=== PATIENT | female | born 1990 | race American Indian/Alaskan Native ===

== ENCOUNTER 2016-08-24 07:27 | Emergency (ER) | payer SELFPAY ==
[2016-08-24 07:48] VITALS: BP 152/87
[2016-08-24] MEDS ORDERED: XYLOCAINE 1% MPF 5 mL ONE (09:04)
[2016-08-24] MEDS ORDERED: XYLOCAINE 1% 20 mL INFILTRATI ONE (09:08)
--- NOTE | 2016-08-24 09:30 | Emergency Department Report ---
ED General Adult HPI - General Chief complaint: Skin/Abscess/Foreign Body Stated complaint: LT KNEE SWELLING/CELLULITIS ON STOMACH Time Seen by Provider: 08/24/16 08:34 Source: patient Mode of arrival: Ambulatory Limitations: No Limitations - History of Present Illness Initial comments: 25-year-old female presents to the ED complaining about a recurrent abscess/ cellulitis of the abdominal wall where her hernia is present. Patient also complains about left knee pain stating that it is aching. states that she does have scabbing over the wound and occasionally bleeds. denies seeing pus drainage. - Related Data Home Medications Medication Instructions Recorded Confirmed Last Taken Pnv with Ca,No.72/Iron/FA 1 tab PO DAILY 06/19/14 09/01/14 08/29/14 [ Plus Tablet] Labetalol HCl [Labetalol HCl] 200 mg PO BID 07/30/14 09/01/14 08/29/14 Previous Rx's Medication Instructions Recorded Last Taken Type Famotidine [Pepcid] 20 mg PO BID #60 tablet 06/19/14 08/30/14 Rx Ondansetron [Zofran Odt] 8 mg PO Q8HR PRN #30 tab.rapdis NS 06/19/14 07/30/14 12 :00 Rx 8mg Docusate Sodium [Colace CAP] 100 mg PO BID #60 capsule 08/31/14 Unknown Rx Ibuprofen [Motrin 800 MG tab] 800 mg PO Q6H PRN #120 tablet 08/31/14 Unknown Rx diphenhydrAMINE [Benadryl] 25 mg PO Q6HR #30 capsule 08/31/14 Unknown Rx oxyCODONE /ACETAMINOPHEN [Percocet 1 tab PO Q6HR PRN #30 tablet 08/31/14 Unknown Rx 5/325 mg] Albuterol Sulfate [Ventolin HFA] 2 puff IH Q4H PRN #1 hfa.aer.ad 09/06/14 Unknown Rx Benzonatate [Tessalon Perles] 100 mg PO Q8HR PRN 30 Days 09/06/14 Unknown Rx Budesonide [Pulmicort Flexhaler] 180 mcg IH Q12H 30 Days 09/06/14 Unknown Rx Butalb/Acetaminophen/Caffeine 1 - 2 each PO Q6H PRN #60 capsule 09/06/14 Unknown Rx [Fioricet 50-300-40 mg CAP] Diltiazem Cd [Cardizem CD] 240 mg PO QDAY #30 capsule 09/06/14 Unknown Rx Levofloxacin [Levaquin TAB] 750 mg PO Q24HR 3 Days 09/06/14 Unknown Rx metroNIDAZOLE [Flagyl TAB] 500 mg PO Q8HR 3 Days 09/06/14 Unknown Rx Allergies Allergy/AdvReac Type Severity Reaction Status Date / Time codeine Allergy Shortness Verified 02/01/14 10:43 of Breath Penicillins Allergy Anaphylaxis Verified 02/01/14 10:43 citic acid Allergy swell up Uncoded 06/20/14 10:04 ED Review of Systems ROS: Stated complaint: LT KNEE SWELLING/CELLULITIS ON STOMACH Other details as noted in HPI Constitutional: denies: chills, fever Eyes: denies: eye pain, eye discharge, vision change ENT: denies: ear pain, throat pain Respiratory: denies: cough, shortness of breath, wheezing Cardiovascular: denies: chest pain, palpitations Endocrine: no symptoms reported Gastrointestinal: denies: abdominal pain, nausea, diarrhea Genitourinary: denies: urgency, dysuria, discharge Musculoskeletal: arthralgia. denies: back pain, joint swelling Skin: other (wound). denies: rash, lesions Neurological: denies: headache, weakness, paresthesias Psychiatric: denies: anxiety, depression Hematological/Lymphatic: denies: easy bleeding, easy bruising ED Past Medical Hx - Past Medical History Previous Medical History?: Yes Hx Hypertension: Yes (PIH) Hx Congestive Heart Failure: No Hx Diabetes: No Hx Deep Vein Thrombosis: No Hx Renal Disease: No Hx Sickle Cell Disease: No Hx Seizures: Yes (x2, about a month ago) Hx Asthma: Yes (last attack about 3 months ago) Hx COPD: No Hx HIV: No Additional medical history: PIHMigraine headaches - Surgical History Past Surgical History?: No Hx Pacemaker: No Hx Internal Defibrillator: No - Social History Smoking Status: Current Every Day Smoker Substance Use Type: None - Medications Home Medications: Home Medications Medication Instructions Recorded Confirmed Last Taken Type Famotidine [Pepcid] 20 mg PO BID #60 tablet 06/19/14 09/01/14 08/30/14 Rx Ondansetron [Zofran Odt] 8 mg PO Q8HR PRN #30 tab.rapdis NS 03/10/15 05/23/15 04 /20/15 12:00 Rx 8mg Pnv with Ca,No.72/Iron/FA 1 tab PO DAILY 06/19/14 09/01/14 08/29/14 History [ Plus Tablet] Labetalol HCl [Labetalol HCl] 200 mg PO BID 07/30/14 09/01/14 08/29/14 History Docusate Sodium [Colace CAP] 100 mg PO BID #60 capsule 08/31/14 Unknown Rx Ibuprofen [Motrin 800 MG tab] 800 mg PO Q6H PRN #120 tablet 08/31/14 Unknown Rx diphenhydrAMINE [Benadryl] 25 mg PO Q6HR #30 capsule 08/31/14 Unknown Rx oxyCODONE /ACETAMINOPHEN [Percocet 1 tab PO Q6HR PRN #30 tablet 08/31/14 Unknown Rx 5/325 mg] Albuterol Sulfate [Ventolin HFA] 2 puff IH Q4H PRN #1 hfa.aer.ad 09/06/14 Unknown Rx Benzonatate [Tessalon Perles] 100 mg PO Q8HR PRN 30 Days 09/06/14 Unknown Rx Budesonide [Pulmicort Flexhaler] 180 mcg IH Q12H 30 Days 09/06/14 Unknown Rx Butalb/Acetaminophen/Caffeine 1 - 2 each PO Q6H PRN #60 capsule 09/06/14 Unknown Rx [Fioricet 50-300-40 mg CAP] Diltiazem Cd [Cardizem CD] 240 mg PO QDAY #30 capsule 09/06/14 Unknown Rx Levofloxacin [Levaquin TAB] 750 mg PO Q24HR 3 Days 09/06/14 Unknown Rx metroNIDAZOLE [Flagyl TAB] 500 mg PO Q8HR 3 Days 09/06/14 Unknown Rx ED Physical Exam - General Limitations: No Limitations General appearance: alert, in no apparent distress - Head Head exam: Present: atraumatic, normocephalic - Eye Eye exam: Present: normal appearance - ENT ENT exam: Present: mucous membranes moist - Neck Neck exam: Present: normal inspection - Respiratory Respiratory exam: Present: normal lung sounds bilaterally. Absent: respiratory distress - Cardiovascular Cardiovascular Exam: Present: regular rate, normal rhythm. Absent: systolic murmur, diastolic murmur, rubs, gallop - GI/Abdominal GI/Abdominal exam: Present: soft, normal bowel sounds - Extremities Exam Extremities exam: Present: normal inspection - Expanded Lower Extremity Exam Left Knee exam: Present: full ROM, tenderness. Absent: swelling, abrasion, laceration, ecchymosis - Back Exam Back exam: Present: normal inspection - Neurological Exam Neurological exam: Present: alert, oriented X3 - Psychiatric Psychiatric exam: Present: normal affect, normal mood - Skin Skin exam: Present: warm, dry, intact, normal color, other (right abdominal wall where hernia is present appears to have slight discoloration and skin that is red with scabbing without drainage. There is tenderness to palpation but no induration, warmth). Absent: rash ED Course Vital Signs 08/24/16 07:45 Temperature 98.6 F Pulse Rate 103 H Respiratory 16 Rate Blood Pressure 152/87 O2 Sat by Pulse 97 Oximetry - Procedure Description Procedures done: Slight swelling to the right abdominal wall with scabbing. Betadine used to prep the area. One percent lidocaine used to anesthetize. One single straight 1 cm incision made over the wound. Slight bloody discharge but no purulent discharge. ED Medical Decision Making - Lab Data Vital Signs 08/24/16 07:45 Temperature 98.6 F Pulse Rate 103 H Respiratory 16 Rate Blood Pressure 152/87 O2 Sat by Pulse 97 Oximetry - Medical Decision Making patient resting comfortably. NAD at this time. VSS for DC. Critical care attestation.: If time is entered above; I have spent that time in minutes in the direct care of this critically ill patient, excluding procedure time. ED Disposition Clinical Impression: Cellulitis, abdominal wall, Left knee pain Disposition: DISCHARGED TO HOME OR SELFCARE Is pt being admited?: No Does the pt Need Aspirin: No Condition: Good Additional Instructions: Take medication as prescribed. Keep area clean and dry with soap and water. Continue following up with the senior mortgage underwriter. Referrals: PRIMARY CARE, [Primary Care Provider] - 3-5 Days Forms: Work/School Release Form(ED) Time of Disposition: 09:32
== END 2016-08-24 09:58 | disposition home or self-care (01) ==
LOC: ED 07:27
DX: L03.311 Cellulitis of abdominal wall (principal); M25.562 Pain in left knee; Z88.0 Allergy status to penicillin; Z88.5 Allergy status to narcotic agent; Z88.8 Allergy status to other drugs, medicaments and biological substances; I10 Essential (primary) hypertension; J45.909 Unspecified asthma, uncomplicated; G43.909 Migraine, unspecified, not intractable, without status migrainosus; F17.200 Nicotine dependence, unspecified, uncomplicated
CPT/HCPCS: 99282

== ENCOUNTER 2016-11-16 08:01 | Emergency (ER) | payer SELFPAY ==
--- NOTE | 2016-11-16 09:19 | Emergency Department Report ---
- General Chief complaint: Skin/Abscess/Foreign Body Stated complaint: WOUND ON ABDOMEN INFECTED Time Seen by Provider: 11/16/16 08:59 Source: patient Mode of arrival: Ambulatory Limitations: No Limitations - History of Present Illness Initial comments: This is a 26-year-old female nontoxic, well nourished in appearance, no acute signs of distress that presented to the ED complaining of a unhealed open wound to the novel area since May. Patient stated she wanted different emergency rooms that was prescribed different type of antibiotics which made it heal but the patient states the wound started to reopen with pus and drainage. Patient also has secondary complaint of vomiting and decreased bowel movement x1 week. Patient denies any fever, chills, headache, stiff neck, abdominal pain , chest pain or shortness of breath. Patient also stated she has a unrepaired hernia but denies any pain to the area. Patient states she does not have insurance yet and is in the process of receiving. Patient states allergies to penicillin and codeine with past medical history of asthma, hypertension, migraine headaches, and seizures. MD complaint: other (open wound) -: Gradual Tetanus Up to Date: yes Severity: mild Severity scale (0 -10): 4 Quality: aching Consistency: constant Improves with: none Worsens with: none Associated symptoms: denies other symptoms Treatments Prior to Arrival: none - Related Data Home Medications Medication Instructions Recorded Confirmed Last Taken Pnv with Ca,No.72/Iron/FA 1 tab PO DAILY 06/19/14 09/01/14 08/29/14 [ Plus Tablet] Labetalol HCl [Labetalol HCl] 200 mg PO BID 07/30/14 09/01/14 08/29/14 Previous Rx's Medication Instructions Recorded Last Taken Type Famotidine [Pepcid] 20 mg PO BID #60 tablet 06/19/14 08/30/14 Rx Ondansetron [Zofran Odt] 8 mg PO Q8HR PRN #30 tab.rapdis NS 06/19/14 07/30/14 12 :00 Rx 8mg Docusate Sodium [Colace CAP] 100 mg PO BID #60 capsule 08/31/14 Unknown Rx Ibuprofen [Motrin 800 MG tab] 800 mg PO Q6H PRN #120 tablet 08/31/14 Unknown Rx diphenhydrAMINE [Benadryl] 25 mg PO Q6HR #30 capsule 08/31/14 Unknown Rx oxyCODONE /ACETAMINOPHEN [Percocet 1 tab PO Q6HR PRN #30 tablet 08/31/14 Unknown Rx 5/325 mg] Albuterol Sulfate [Ventolin HFA] 2 puff IH Q4H PRN #1 hfa.aer.ad 09/06/14 Unknown Rx Benzonatate [Tessalon Perles] 100 mg PO Q8HR PRN 30 Days 09/06/14 Unknown Rx Budesonide [Pulmicort Flexhaler] 180 mcg IH Q12H 30 Days 09/06/14 Unknown Rx Butalb/Acetaminophen/Caffeine 1 - 2 each PO Q6H PRN #60 capsule 09/06/14 Unknown Rx [Fioricet 50-300-40 mg CAP] Diltiazem Cd [Cardizem CD] 240 mg PO QDAY #30 capsule 09/06/14 Unknown Rx Levofloxacin [Levaquin TAB] 750 mg PO Q24HR 3 Days 09/06/14 Unknown Rx metroNIDAZOLE [Flagyl TAB] 500 mg PO Q8HR 3 Days 09/06/14 Unknown Rx Acetaminophen/Codeine [Tylenol 1 tab PO Q6H PRN #10 tab 08/24/16 Unknown Rx /Codeine # 3 tab] Diclofenac Sodium 75 mg PO BID #20 tablet. 08/24/16 Unknown Rx Doxycycline Monohydrate 100 mg PO BID #20 capsule 08/24/16 Unknown Rx [Doxycycline Monohydrate CAP] Sulfamethoxazole/Trimethoprim 1 each PO BID #20 tablet 11/16/16 Unknown Rx [Bactrim DS TAB] amLODIPine [Norvasc] 2.5 mg PO DAILY #30 tab 11/16/16 Unknown Rx Allergies Allergy/AdvReac Type Severity Reaction Status Date / Time codeine Allergy Shortness Verified 02/01/14 10:43 of Breath Penicillins Allergy Anaphylaxis Verified 02/01/14 10:43 citic acid Allergy swell up Uncoded 06/20/14 10:04 Abscess Boil HPI - HPI Chief Complaint: Skin/Abscess/Foreign Body Stated Complaint: WOUND ON ABDOMEN INFECTED Time Seen by Provider: 11/16/16 08:59 Home Medications: Home Medications Medication Instructions Recorded Confirmed Last Taken Pnv with Ca,No.72/Iron/FA 1 tab PO DAILY 06/19/14 09/01/14 08/29/14 [ Plus Tablet] Labetalol HCl [Labetalol HCl] 200 mg PO BID 07/30/14 09/01/14 08/29/14 Previous Rx's Medication Instructions Recorded Last Taken Type Famotidine [Pepcid] 20 mg PO BID #60 tablet 06/19/14 08/30/14 Rx Ondansetron [Zofran Odt] 8 mg PO Q8HR PRN #30 tab.rapdis NS 06/19/14 07/30/14 12 :00 Rx 8mg Docusate Sodium [Colace CAP] 100 mg PO BID #60 capsule 08/31/14 Unknown Rx Ibuprofen [Motrin 800 MG tab] 800 mg PO Q6H PRN #120 tablet 08/31/14 Unknown Rx diphenhydrAMINE [Benadryl] 25 mg PO Q6HR #30 capsule 08/31/14 Unknown Rx oxyCODONE /ACETAMINOPHEN [Percocet 1 tab PO Q6HR PRN #30 tablet 08/31/14 Unknown Rx 5/325 mg] Albuterol Sulfate [Ventolin HFA] 2 puff IH Q4H PRN #1 hfa.aer.ad 09/06/14 Unknown Rx Benzonatate [Tessalon Perles] 100 mg PO Q8HR PRN 30 Days 09/06/14 Unknown Rx Budesonide [Pulmicort Flexhaler] 180 mcg IH Q12H 30 Days 09/06/14 Unknown Rx Butalb/Acetaminophen/Caffeine 1 - 2 each PO Q6H PRN #60 capsule 09/06/14 Unknown Rx [Fioricet 50-300-40 mg CAP] Diltiazem Cd [Cardizem CD] 240 mg PO QDAY #30 capsule 09/06/14 Unknown Rx Levofloxacin [Levaquin TAB] 750 mg PO Q24HR 3 Days 09/06/14 Unknown Rx metroNIDAZOLE [Flagyl TAB] 500 mg PO Q8HR 3 Days 09/06/14 Unknown Rx Acetaminophen/Codeine [Tylenol 1 tab PO Q6H PRN #10 tab 08/24/16 Unknown Rx /Codeine # 3 tab] Diclofenac Sodium 75 mg PO BID #20 tablet. 08/24/16 Unknown Rx Doxycycline Monohydrate 100 mg PO BID #20 capsule 08/24/16 Unknown Rx [Doxycycline Monohydrate CAP] Sulfamethoxazole/Trimethoprim 1 each PO BID #20 tablet 11/16/16 Unknown Rx [Bactrim DS TAB] amLODIPine [Norvasc] 2.5 mg PO DAILY #30 tab 11/16/16 Unknown Rx Allergies/Adverse Reactions: Allergies Allergy/AdvReac Type Severity Reaction Status Date / Time codeine Allergy Shortness Verified 02/01/14 10:43 of Breath Penicillins Allergy Anaphylaxis Verified 02/01/14 10:43 citic acid Allergy swell up Uncoded 06/20/14 10:04 ED Review of Systems ROS: Stated complaint: WOUND ON ABDOMEN INFECTED Other details as noted in HPI Constitutional: denies: chills, fever Eyes: denies: eye pain, eye discharge, vision change ENT: denies: ear pain, throat pain Respiratory: denies: cough, shortness of breath, wheezing Cardiovascular: denies: chest pain, palpitations Endocrine: no symptoms reported Gastrointestinal: denies: abdominal pain, nausea, diarrhea Genitourinary: denies: urgency, dysuria, discharge Musculoskeletal: denies: back pain, joint swelling, arthralgia Skin: denies: rash, lesions Neurological: denies: headache, weakness, paresthesias Psychiatric: denies: anxiety, depression Hematological/Lymphatic: denies: easy bleeding, easy bruising ED Past Medical Hx - Past Medical History Previous Medical History?: Yes Hx Hypertension: Yes (PIH) Hx Congestive Heart Failure: No Hx Diabetes: No Hx Deep Vein Thrombosis: No Hx Renal Disease: No Hx Sickle Cell Disease: No Hx Seizures: Yes (x2, about a month ago) Hx Asthma: Yes (last attack about 3 months ago) Hx COPD: No Hx HIV: No Additional medical history: PIHMigraine headaches - Surgical History Past Surgical History?: No Hx Pacemaker: No Hx Internal Defibrillator: No - Social History Smoking Status: Current Every Day Smoker Substance Use Type: None - Medications Home Medications: Home Medications Medication Instructions Recorded Confirmed Last Taken Type Famotidine [Pepcid] 20 mg PO BID #60 tablet 06/19/14 09/01/14 08/30/14 Rx Ondansetron [Zofran Odt] 8 mg PO Q8HR PRN #30 tab.rapdis NS 06/19/14 09/01/14 12:00 Rx 8mg Pnv with Ca,No.72/Iron/FA 1 tab PO DAILY 06/19/14 09/01/14 08/29/14 History [ Plus Tablet] Labetalol HCl [Labetalol HCl] 200 mg PO BID 07/30/14 09/01/14 08/29/14 History Docusate Sodium [Colace CAP] 100 mg PO BID #60 capsule 08/31/14 Unknown Rx Ibuprofen [Motrin 800 MG tab] 800 mg PO Q6H PRN #120 tablet 08/31/14 Unknown Rx diphenhydrAMINE [Benadryl] 25 mg PO Q6HR #30 capsule 08/31/14 Unknown Rx oxyCODONE /ACETAMINOPHEN [Percocet 1 tab PO Q6HR PRN #30 tablet 08/31/14 Unknown Rx 5/325 mg] Albuterol Sulfate [Ventolin HFA] 2 puff IH Q4H PRN #1 hfa.aer.ad 09/06/14 Unknown Rx Benzonatate [Tessalon Perles] 100 mg PO Q8HR PRN 30 Days 09/06/14 Unknown Rx Budesonide [Pulmicort Flexhaler] 180 mcg IH Q12H 30 Days 09/06/14 Unknown Rx Butalb/Acetaminophen/Caffeine 1 - 2 each PO Q6H PRN #60 capsule 09/06/14 Unknown Rx [Fioricet 50-300-40 mg CAP] Diltiazem Cd [Cardizem CD] 240 mg PO QDAY #30 capsule 09/06/14 Unknown Rx Levofloxacin [Levaquin TAB] 750 mg PO Q24HR 3 Days 09/06/14 Unknown Rx metroNIDAZOLE [Flagyl TAB] 500 mg PO Q8HR 3 Days 09/06/14 Unknown Rx Acetaminophen/Codeine [Tylenol 1 tab PO Q6H PRN #10 tab 08/24/16 Unknown Rx /Codeine # 3 tab] Diclofenac Sodium 75 mg PO BID #20 tablet.dr 08/24/16 Unknown Rx Doxycycline Monohydrate 100 mg PO BID #20 capsule 08/24/16 Unknown Rx [Doxycycline Monohydrate CAP] Sulfamethoxazole/Trimethoprim 1 each PO BID #20 tablet 11/16/16 Unknown Rx [Bactrim DS TAB] amLODIPine [Norvasc] 2.5 mg PO DAILY #30 tab 11/16/16 Unknown Rx ED Physical Exam - General Limitations: No Limitations General appearance: alert, in no apparent distress - Head Head exam: Present: atraumatic, normocephalic, normal inspection - Eye Eye exam: Present: normal appearance, PERRL, EOMI. Absent: scleral icterus, conjunctival injection, nystagmus, periorbital swelling, periorbital tenderness Pupils: Present: normal accommodation - ENT ENT exam: Present: normal exam, normal orophraynx, mucous membranes moist, TM's normal bilaterally, normal external ear exam - Neck Neck exam: Present: normal inspection, full ROM. Absent: tenderness, meningismus, lymphadenopathy, thyromegaly - Respiratory Respiratory exam: Present: normal lung sounds bilaterally. Absent: respiratory distress, wheezes, rales, rhonchi, stridor, chest wall tenderness, accessory muscle use, decreased breath sounds, prolonged expiratory - Cardiovascular Cardiovascular Exam: Present: regular rate, normal rhythm, normal heart sounds. Absent: systolic murmur, diastolic murmur, rubs, gallop - GI/Abdominal GI/Abdominal exam: Present: soft, normal bowel sounds, hernia (reducible to the right lower quadrant region), other (2 cm x 2 cm circular open wound with pus and drainage noted to the right lower quadrant.). Absent: distended, tenderness , guarding, rebound, rigid, diminished bowel sounds, hyperactive bowel sounds, hypoactive bowel sounds, organomegaly, mass, bruit, pulsatile mass - Expanded GI/Abdominal Exam Expanded GI/Abdominal exam: Absent: psoas sign, heel tap sign, Marinelli's sign, Rovsing's sign, tenderness at [place]bur[place]'s Point, ascites - Rectal Rectal exam: Present: deferred - Extremities Exam Extremities exam: Present: normal inspection, full ROM, normal capillary refill. Absent: tenderness, pedal edema, joint swelling, calf tenderness - Back Exam Back exam: Present: normal inspection, full ROM. Absent: tenderness, CVA tenderness (R), CVA tenderness (L), muscle spasm, paraspinal tenderness, vertebral tenderness, rash noted - Neurological Exam Neurological exam: Present: alert, oriented X3, CN II-XII intact, normal gait, reflexes normal - Psychiatric Psychiatric exam: Present: normal affect, normal mood - Skin Skin exam: Present: warm, dry, intact, normal color. Absent: rash ED Course Vital Signs 11/16/16 11/16/16 11/16/16 08:03 08:29 14:00 Temperature 98.4 F 98.7 F Pulse Rate 103 H 101 H 97 H Respiratory 16 20 18 Rate Blood Pressure 154/106 Blood Pressure 153/98 144/81 [Right] O2 Sat by Pulse 100 100 99 Oximetry - Reevaluation(s) Reevaluation #1: 11/16/16 09:22 Patient is able speak full sentences with no signs of distress. Reevaluation #2: 11/16/16 13:49 Patient is resting comfortably with no signs of distress noted. - Consultations Consultation #1: 11/16/16 09:22 Dr. Newton was consulted and examined patient. Agrees to the plan of care in the ED. Consultation #2: 11/16/16 13:49 Dr. Newton consulted about lab results and ct scan. agrees for d/c with proper follow-up. ED Medical Decision Making - Lab Data Result diagrams: 11/16/16 09:24 11/16/16 09:24 - Medical Decision Making Ed course: This is a 26-year-old female that presents to the ED with open wound 1- patient was examined by myself and Dr. Newton. CT scan of abd w/ contrast/ CBC , BMP, Lip. Lactic acid, Amylase has been obtained. CT indicates a large ventral hernia and superior hernia. Hernias are reducible. Patient was instructed to follow up with a primary care doctor/general surgery in 3-5 days for her hernias. Patient is also short-lived to follow-up with a triage specialist in 24 hours. Patient be treated with Bactrim 10 days. Patient was also instructed to take amlodipine as prescribed. I notified patient to take blood pressure vitals in the morning, afternoon and evening time and followed up with her primary care doctor. Critical care attestation.: If time is entered above; I have spent that time in minutes in the direct care of this critically ill patient, excluding procedure time. ED Disposition Clinical Impression: Open wound High blood pressure Qualifiers: Hypertension type: unspecified Qualified Code(s): I10 - Essential (primary) hypertension Ventral hernia Qualifiers: Obstruction and gangrene presence: without obstruction or gangrene Qualified Code(s): K43.9 - Ventral hernia without obstruction or gangrene Disposition: DC-01 TO HOME OR SELFCARE Is pt being admited?: No Does the pt Need Aspirin: No Condition: Stable Instructions: Sulfamethoxazole/Trimethoprim (By mouth), Amlodipine (By mouth), Wound Infection (ED), Acute Wound Care (ED), Wound Healing and Your Diet (ED), DASH Eating Plan (ED), Low Sodium Diet (ED), Hypertension (ED) Additional Instructions: Follow-up with a primary care doctor/general surgery in 24 hours for your ventral hernias. You also have high blood pressure in the emergency room so please take amlodipine as prescribed. Check your blood pressure in the morning, afternoon and evening times and follow up with your primary care doctor for blood pressure 3-5 days. Take full course of antibiotics as prescribed. Keep wound clean with 4 x 4's wet and tape. Follow-up with a triage specialist in 24 hours as directed [facility] has a excellent male infertility specialist. Please make an appointment as I referred you too. Prescriptions: amLODIPine [Norvasc] 2.5 mg PO DAILY #30 tab Sulfamethoxazole/Trimethoprim [Bactrim DS TAB] 1 each PO BID #20 tablet Referrals: PRIMARY MD ADAM [Primary Care Provider] - 3-5 Days CONSUELO POLANCO MD [Staff Physician] - 3-5 Days [facility] [Outside] - 3-5 Days [facility] [Outside] - 3-5 Days [facility] [Outside] - 3-5 Days Forms: Work/School Release Form(ED)
[2016-11-16 09:36] LABS: Basophils % (Auto) 0.3 % (0.0-1.8); Hematocrit 40.4 % (30.3-42.9); Mean Corpuscular HGB Conc 32 % (30-34); Mean Corpuscular Hemoglobin 26 pg (28-32); Mean Corpuscular Volume 82 fl (79-97); Platelet Count 243 K/mm3 (140-440); Red Blood Count 4.92 M/mm3 (3.65-5.03); Red Cell Distribution Width 16.6 % (13.2-15.2); White Blood Count 5.1 K/mm3 (4.5-11.0)
[2016-11-16 09:46] LABS: Amylase 47 units/L (27-131); Lipase 24 units/L (13-60)
[2016-11-16 09:48] LABS: Alanine Aminotransferase 48 units/L (7-56); Albumin/Globulin Ratio 1.1 %; Alkaline Phosphatase 63 units/L (35-129); Anion Gap 17 mmol/L; Blood Urea Nitrogen 9 mg/dL (7-17); Calcium 8.7 mg/dL (8.4-10.2); Carbon Dioxide 24 mmol/L (22-30); Chloride 102.6 mmol/L (98-107); Glucose 113 mg/dL (65-100); Potassium 3.7 mmol/L (3.6-5.0); Sodium 140 mmol/L (137-145); Total Protein 7.7 g/dL (6.3-8.2)
[2016-11-16 09:54] LABS: Bilirubin,Direct < 0.2 mg/dL (0-0.2)
[2016-11-16] MEDS ORDERED: TORADOL IV ONE (10:14)
[2016-11-16] MEDS ORDERED: ZOFRAN ODT ONE (10:24)
[2016-11-16] MEDS ORDERED: ZOFRAN ODT PO ONE (10:26)
--- NOTE | 2016-11-16 13:28 | Cat Scan Report ---
CT scan of abdomen and pelvis with IV and oral contrast: History: Abdominal pain. Findings: No acute lung changes. No pleural or pericardial effusion. Normal liver spleen pancreas and gallbladder. Normal adrenals and kidney parenchyma. Decompressed urinary bladder. Large ventral hernia containing loops of small bowel and measuring approximate 16 cm in maximum diameter. Superior to the hernia there is a second hernia measuring approximately 8 cm in diameter containing loops of large bowel. No bowel obstruction. No incarceration. 4.4 cm suspected right pelvic mass probably ovarian cyst. No evidence of appendicitis or diverticulitis. Impression: Ventral hernias as detailed above. Suspected right ovarian cyst.
[2016-11-16 14:01] VITALS: BP 144/81
== END 2016-11-16 14:13 | disposition home or self-care (01) ==
LOC: ED 08:01
DX: S31.103A Unspecified open wound of abdominal wall, right lower quadrant without penetration into peritoneal cavity, initial encounter (principal); K43.9 Ventral hernia without obstruction or gangrene; I10 Essential (primary) hypertension; J45.909 Unspecified asthma, uncomplicated; F17.200 Nicotine dependence, unspecified, uncomplicated; X58.XXXA Exposure to other specified factors, initial encounter; Y93.9 Activity, unspecified; Y92.9 Unspecified place or not applicable; Y99.9 Unspecified external cause status
CPT/HCPCS: 36415; 74177; 80048; 80074; 82140; 82150; 82550; 83690; 84702; 85025; 96374; 99284; J1885; Q9967; Q0162

== ENCOUNTER 2018-11-30 10:26 | Emergency (ER) | payer SELFPAY ==
[2018-11-30 10:39] VITALS: BP 135/88
[2018-11-30 11:02] LABS: Bacteria,Urine 1+ /HPF (Negative); Mucus,Urine FEW /HPF
--- NOTE | 2018-11-30 11:13 | Emergency Department Report ---
ED Abdominal Pain HPI - General Chief Complaint: Abdominal Pain Stated Complaint: HERNIA PAIN Time Seen by Provider: 11/30/18 10:55 Source: patient Mode of arrival: Ambulatory Limitations: No Limitations - History of Present Illness Initial Comments: Shawanda is a healthy 28-year-old female with history of severe obesity and abdominal hernia who presents with pain at the site of both hernia. She has had pain in the epigastric region and left lower quadrant. She explained that over the last several weeks that the hernia has been protruding. She has intermittent constipation and diarrhea. She has been to several emergency departments in the [facility]. She has been referred to a hernia [facility] in [place]. She also was recommended to have surgery. Pain is positional. She denies fever. Denies vomiting. She has battled with obesity since her teenage years. At the age of 20 she was 290 pounds. While in college, she lost 150 pounds. However she has not been able to lose the weight after her recent 4 years ago. MD Complaint: abdominal pain -: Gradual, year(s) (several years) Location: RLQ, epigastric Severity: moderate Quality: cramping, sharp Consistency: constant Improves With: other (standing and laying) Worsens With: movement, other (palpation) Context: other (hernia and obesity) Associated Symptoms: denies other symptoms - Related Data Home Medications Medication Instructions Recorded Confirmed Last Taken Pnv with Ca,No.72/Iron/FA 1 tab PO DAILY 06/19/14 09/01/14 08/29/14 [ Plus Tablet] Labetalol HCl 200 mg PO BID 07/30/14 09/01/14 08/29/14 Previous Rx's Medication Instructions Recorded Last Taken Type Famotidine [Pepcid] 20 mg PO BID #60 tablet 06/19/14 08/30/14 Rx Ondansetron [Zofran Odt] 8 mg PO Q8HR PRN #30 tab.rapdis NS 06/19/14 07/30/14 12:00 Rx 8mg Docusate Sodium [Colace CAP] 100 mg PO BID #60 capsule 08/31/14 Unknown Rx Ibuprofen [Motrin 800 MG tab] 800 mg PO Q6H PRN #120 tablet 08/31/14 Unknown Rx diphenhydrAMINE [Benadryl] 25 mg PO Q6HR #30 capsule 08/31/14 Unknown Rx oxyCODONE /ACETAMINOPHEN [Percocet 1 tab PO Q6HR PRN #30 tablet 08/31/14 Unknown Rx 5/325 mg] Albuterol Sulfate [Ventolin HFA] 2 puff IH Q4H PRN #1 hfa.aer.ad 09/06/14 Unknown Rx Benzonatate [Tessalon Perles] 100 mg PO Q8HR PRN 30 Days capsule 09/06/14 Unknown Rx Budesonide [Pulmicort Flexhaler] 180 mcg IH Q12H 30 Days aer.pow.ba 09/06/14 Unknown Rx Butalb/Acetaminophen/Caffeine 1 - 2 each PO Q6H PRN #60 capsule 09/06/14 Unknown Rx [Fioricet 50-300-40 mg CAP] dilTIAZem CD [Cardizem CD] 240 mg PO QDAY #30 capsule 09/06/14 Unknown Rx levoFLOXacin [Levaquin TAB] 750 mg PO Q24HR 3 Days tablet 09/06/14 Unknown Rx metroNIDAZOLE [Flagyl TAB] 500 mg PO Q8HR 3 Days tablet 09/06/14 Unknown Rx Acetaminophen/Codeine [Tylenol 1 tab PO Q6H PRN #10 tab 08/24/16 Unknown Rx /Codeine # 3 tab] Diclofenac Sodium 75 mg PO BID #20 tablet.dr 08/24/16 Unknown Rx Doxycycline Monohydrate 100 mg PO BID #20 capsule 08/24/16 Unknown Rx [Doxycycline Monohydrate CAP] Sulfamethoxazole/Trimethoprim 1 each PO BID #20 tablet 11/16/16 Unknown Rx [Bactrim DS TAB] amLODIPine [Norvasc] 2.5 mg PO DAILY #30 tab 11/16/16 Unknown Rx Docusate Sodium [Colace] 100 mg PO BID 14 Days #28 capsule 11/30/18 Unknown Rx Allergies Allergy/AdvReac Type Severity Reaction Status Date / Time codeine Allergy Shortness Verified 11/30/18 10:28 of Breath Penicillins Allergy Anaphylaxis Verified 11/30/18 10:28 citic acid Allergy swell up Uncoded 06/20/14 10:04 ED Review of Systems ROS: Stated complaint: HERNIA PAIN Other details as noted in HPI Comment: All other systems reviewed and negative Constitutional: denies: fever, malaise Gastrointestinal: abdominal pain ED Past Medical Hx - Past Medical History Previous Medical History?: Yes Hx Hypertension: Yes (PIH) Hx Congestive Heart Failure: No Hx Diabetes: No Hx Deep Vein Thrombosis: No Hx Renal Disease: No Hx Sickle Cell Disease: No Hx Seizures: No (NOT SINCE ) Hx Asthma: No Hx COPD: No Hx HIV: No Additional medical history: PIHMigraine headaches - Surgical History Hx Pacemaker: No Hx Internal Defibrillator: No Additional Surgical History: C SECTIONS - Social History Smoking Status: Never Smoker - Medications Home Medications: Home Medications Medication Instructions Recorded Confirmed Last Taken Type Famotidine [Pepcid] 20 mg PO BID #60 tablet 06/19/14 09/01/14 08/30/14 Rx Ondansetron [Zofran Odt] 8 mg PO Q8HR PRN #30 tab.rapdis NS 06/19/14 09/01/14 07/30/14 12:00 Rx 8mg Pnv with Ca,No.72/Iron/FA 1 tab PO DAILY 06/19/14 09/01/14 08/29/14 History [ Plus Tablet] Labetalol HCl 200 mg PO BID 07/30/14 09/01/14 08/29/14 History Docusate Sodium [Colace CAP] 100 mg PO BID #60 capsule 08/31/14 Unknown Rx Ibuprofen [Motrin 800 MG tab] 800 mg PO Q6H PRN #120 tablet 08/31/14 Unknown Rx diphenhydrAMINE [Benadryl] 25 mg PO Q6HR #30 capsule 08/31/14 Unknown Rx oxyCODONE /ACETAMINOPHEN [Percocet 1 tab PO Q6HR PRN #30 tablet 08/31/14 Unknown Rx 5/325 mg] Albuterol Sulfate [Ventolin HFA] 2 puff IH Q4H PRN #1 hfa.aer.ad 09/06/14 Unk nown Rx Benzonatate [Tessalon Perles] 100 mg PO Q8HR PRN 30 Days capsule 09/06/14 Unknown Rx Budesonide [Pulmicort Flexhaler] 180 mcg IH Q12H 30 Days aer.pow.ba 09/06/14 Unknown Rx Butalb/Acetaminophen/Caffeine 1 - 2 each PO Q6H PRN #60 capsule 09/06/14 Unknown Rx [Fioricet 50-300-40 mg CAP] dilTIAZem CD [Cardizem CD] 240 mg PO QDAY #30 capsule 09/06/14 Unknown Rx levoFLOXacin [Levaquin TAB] 750 mg PO Q24HR 3 Days tablet 09/06/14 Unknown Rx metroNIDAZOLE [Flagyl TAB] 500 mg PO Q8HR 3 Days tablet 09/06/14 Unknown Rx Acetaminophen/Codeine [Tylenol 1 tab PO Q6H PRN #10 tab 08/24/16 Unknown Rx /Codeine # 3 tab] Diclofenac Sodium 75 mg PO BID #20 tablet.dr 08/24/16 Unknown Rx Doxycycline Monohydrate 100 mg PO BID #20 capsule 08/24/16 Unknown Rx [Doxycycline Monohydrate CAP] Sulfamethoxazole/Trimethoprim 1 each PO BID #20 tablet 11/16/16 Unknown Rx [Bactrim DS TAB] amLODIPine [Norvasc] 2.5 mg PO DAILY #30 tab 11/16/16 Unknown Rx Docusate Sodium [Colace] 100 mg PO BID 14 Days #28 capsule 11/30/18 Unknown Rx ED Physical Exam - General Limitations: No Limitations General appearance: alert, in no apparent distress - Head Head exam: Present: atraumatic, normocephalic - Eye Eye exam: Present: normal appearance - ENT ENT exam: Present: mucous membranes moist - Neck Neck exam: Present: normal inspection, full ROM - Respiratory Respiratory exam: Present: normal lung sounds bilaterally. Absent: respiratory distress, wheezes, rales, rhonchi - Cardiovascular Cardiovascular Exam: Present: regular rate, normal rhythm, normal heart sounds. Absent: systolic murmur, diastolic murmur, rubs, gallop - GI/Abdominal GI/Abdominal exam: Present: soft, other (obese habitus large hernia RLQ unable to palpate hernia in upper quadrant). Absent: distended, tenderness, guarding, rebound - Extremities Exam Extremities exam: Present: normal inspection - Back Exam Back exam: Present: normal inspection - Neurological Exam Neurological exam: Present: alert, oriented X3 - Psychiatric Psychiatric exam: Present: normal affect, normal mood - Skin Skin exam: Present: warm, dry, intact, normal color. Absent: rash ED Course Vital Signs 11/30/18 10:37 Temperature 98.3 F Pulse Rate 102 H Respiratory 18 Rate Blood Pressure 135/88 O2 Sat by Pulse 100 Oximetry ED Medical Decision Making - Medical Decision Making Shawanda presents with abdominal wall hernias mild discomfort. No indication of incarceration or peritonitis on exam. She has been to several hospitals in the [place] area including [facility] and [facility]. Even referred to a hernia institute in [place] . She desires definitive care for abdominal hernias. I strongly suggested that she seek out a hydraulic blocker. Also referred her to our weight loss program here at [facility]. She appears receptive to bariatric surgery. In the interim, I have prescribed Colace. I recommended clear liquid diet for the next 3 days. Critical care attestation.: If time is entered above; I have spent that time in minutes in the direct care of this critically ill patient, excluding procedure time. ED Disposition Clinical Impression: Abdominal hernia, Severe obesity, Abdominal pain Disposition: - TO HOME OR SELFCARE Is pt being admited?: No Does the pt Need Aspirin: No Condition: Stable Instructions: Obesity (ED), Weight Management (ED) Additional Instructions: Clear liquid diet for the next 3 days. Please contact our healthy [facility] Center. The phone number is . Prescriptions: Docusate Sodium [Colace] 100 mg PO BID 14 Days #28 capsule Referrals: BRENDAN FLORES MD [Staff Physician] - 3-5 Days
[2018-11-30] MEDS ORDERED: TORADOL IM ONE (11:19)
[2018-11-30 11:20] LABS: Bilirubin,Urine NEG (Negative); Blood,Urine NEG (Negative); Color,Urine Yellow (Yellow); Protein,Urine <15 mg/dL mg/dL (Negative); Urobilinogen,Urine < 2.0 mg/dL (<2.0)
== END 2018-11-30 11:36 | disposition home or self-care (01) ==
LOC: ED 10:26
DX: K46.9 Unspecified abdominal hernia without obstruction or gangrene (principal); E66.01 Morbid (severe) obesity due to excess calories; I10 Essential (primary) hypertension; Z88.5 Allergy status to narcotic agent; Z88.0 Allergy status to penicillin; Z91.018 Allergy to other foods
CPT/HCPCS: 81001; 96372; 99283; J1885

== ENCOUNTER 2021-08-15 21:16 | Emergency (ER) | payer OTHER ==
[2021-08-15 21:56] VITALS: BP 138/92
== END 2021-08-16 01:10 | disposition left against medical advice (07) ==
LOC: ED 21:16
DX: Z00.00 Encounter for general adult medical examination without abnormal findings (principal); Z53.21 Procedure and treatment not carried out due to patient leaving prior to being seen by health care provider